=== PATIENT | female | born 1950 | race Caucasian/White ===

== ENCOUNTER 2021-08-07 15:35 | Emergency (ER) | payer MEDICARE ==
[2021-08-07] MEDS ORDERED: Ketorolac 30 MG/ML SDV IM ONE (15:56)
--- NOTE | 2021-08-07 16:03 | EDM.PDOC ---
ED HPI GENERAL MEDICAL PROBLEM - General Chief Complaint: Upper Extremity Injury/Pain Stated Complaint: FELL ON [place] [facility] , RT WRIST INJURY Time Seen by Provider: 08/07/21 15:45 Source of Information: Reports: Patient History Limitations: Reports: No Limitations - History of Present Illness INITIAL COMMENTS - FREE TEXT/NARRATIVE: 71 yo male here with a R distal forearm injury from a fall today. Has a splint in place on arrival. No other injuries. No pain meds taken before arrival. 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(s) Right Arm Pain Score (Numeric/FACES): 5 - Related Data Allergies Allergy/AdvReac Type Severity Reaction Status Date / Time No Known Allergies Allergy Verified 08/07/21 15:59 Home Meds: Home Meds atorvaSTATin [Lipitor] 20 mg PO DAILY 08/07/21 [History] Review of Systems - Review of Systems Review Of Systems: See Below Constitutional: Reports: No Symptoms Musculoskeletal: Reports: Arm Pain (R forearm) Skin: Reports: No Symptoms Neurological: Reports: No Symptoms ED EXAM, GENERAL - Physical Exam Exam: See Below Exam Limited By: No Limitations General Appearance: Alert, WD/WN, No Apparent Distress Extremities: No Pedal Edema, Limited Range of Motion (due to pain), Other (distal forearm with a visible deformity. Good radial pulse present. ). No: Normal Inspection, Normal Range of Motion, Non-Tender, Pedal Edema, Increased Warmth, Redness Neurological: Alert, Oriented, CN II-XII Intact, Normal Cognition, No Motor/Sensory Deficits Psychiatric: Normal Affect, Normal Mood Skin Exam: Warm, Dry, Intact, Normal Color, No Rash. No: Ecchymosis, Erythema ED TRAUMA EXTREMITY PROCEDURES - Additional/Other Procedure(s) Other (Free Text) Procedure(s): Under anesthesia guided propofol sedation I attempted to reduce her dorsally angulated distal radius fx. My first post-reduction X-ray showed the fx had slipped back into its original dorsally angulated position. I reattempted to reduce the fx this time the images look good, but by the time we were able to get the sugar-tong splint on she was partially dorsally angulated again. I decided to accept the final position as it was an improvement over her starting position. A sling was applied by nursing. Course - Vital Signs Text/Narrative:: Michela Clark called @ 1620h for consult Last Recorded V/S: Last Vital Signs Temp 36.4 C 08/07/21 15:59 Pulse 87 08/07/21 15:59 Resp 16 08/07/21 15:59 BP 150/76 H 08/07/21 15:59 Pulse Ox 96 08/07/21 15:59 - Orders/Labs/Meds Orders: Active Orders 24 hr Category Date Time Status Forearm 2V Rt [CR] Stat Exams 08/07/21 15:57 Taken Wrist Comp Min 3V Rt [CR] Stat Exams 08/07/21 17:00 Ordered Sodium Chloride 0.9% [Saline Flush] Med 08/07/21 16:35 Active 10 ml FLUSH ASDIRECTED PRN Saline Lock Insert [OM.PC] Routine Oth 08/07/21 16:35 Ordered Medication Orders Sodium Chloride (Sodium Chloride 0.9% 10 Ml Syringe) 10 ml FLUSH ASDIRECTED PRN PRN Reason: Keep Vein Open Meds: Medications Generic Name Dose Route Start Last Admin Trade Name Freq PRN Reason Stop Dose Admin Sodium Chloride 10 ml 08/07/21 16:35 Sodium Chloride 0.9% 10 Ml Syringe FLUSH ASDIRECTED PRN Keep Vein Open Discontinued Medications Generic Name Dose Route Start Last Admin Trade Name Freq PRN Reason Stop Dose Admin Ketorolac Tromethamine 30 mg 08/07/21 15:56 08/07/21 16:06 Ketorolac 30 Mg/Ml Sdv IM 08/07/21 15:57 30 mg ONETIME ONE Administration - Radiology Interpretation Free Text/Narrative:: R forearm [id number] radius fx post-reduction X-ray of wrist- Departure - Departure Time of Disposition: 18:15 Disposition: Home, Self-Care 01 Condition: Fair Clinical Impression: Fracture of right distal radius Qualifiers: Encounter type: initial encounter Fracture type: closed Fracture morphology: unspecified fracture morphology Qualified Code(s): S52.501A - Unspecified fracture of the lower end of right radius, initial encounter for closed fracture - Discharge Information *PRESCRIPTION DRUG MONITORING PROGRAM REVIEWED*: Not Applicable *COPY OF PRESCRIPTION DRUG MONITORING REPORT IN PATIENT CHE: Not Applicable Instructions: Closed Reduction for Wrist or Forearm, Care After Referrals: PCP,None [Primary Care Provider] - Forms: ED Department Discharge Additional Instructions: Leave your splint on at all times. Use your sling for added support. Follow up with orthopedics at your earliest opportunity next week for further care. Take your disc with your X-rays along to the appt. Take ibuprofen up to 600 mg every 6 hrs with food for pain relief. Add acetaminophen for further pain relief. You can apply an ice bag to the fracture site to help with the pain and set your forearm on a pillow to provide some elevation. Sepsis Event Note (ED) - Focused Exam Vital Signs: Vital Signs Temp Pulse Resp BP Pulse Ox 08/07/21 15:59 36.4 C 87 16 150/76 H 96 08/07/21 15:52 36.4 C 87 16 150/76 H 96 - My Orders Last 24 Hours: My Active Orders 08/07/21 15:57 Forearm 2V Rt [CR] Stat 08/07/21 16:35 Sodium Chloride 0.9% [Saline Flush] 10 ml FLUSH ASDIRECTED PRN Saline Lock Insert [OM.PC] Routine 08/07/21 17:00 Wrist Comp Min 3V Rt [CR] Stat - Assessment/Plan Last 24 Hours: My Active Orders 08/07/21 15:57 Forearm 2V Rt [CR] Stat 08/07/21 16:35 Sodium Chloride 0.9% [Saline Flush] 10 ml FLUSH ASDIRECTED PRN Saline Lock Insert [OM.PC] Routine 08/07/21 17:00 Wrist Comp Min 3V Rt [CR] Stat
[2021-08-07] MEDS ORDERED: Sodium Chloride 0.9% 10 ML Syringe FLUSH PRN (16:35)
[2021-08-07] MEDS ORDERED: Propofol 200 MG/20 ML SDV ONE (17:30)
--- NOTE | 2021-08-10 09:06 | CR ---
Forearm 2V Rt, Wrist Comp Min 3V Rt CLINICAL HISTORY: Fall FINDINGS: There is an active displaced fracture of the distal radius with dorsal angulation. There is ulnar abutment on the proximal carpal row IMPRESSION: Impacted distal radial fracture Wrist Comp Min 3V Rt CLINICAL HISTORY: Post reduction FINDINGS: There is a lateral post reduction image #1 showing similar angulation of the distal radius. There is a post reduction #2 image showing reduction of the dorsal angulation. There is a post reduction image #3 with a cast in place. There is an increase in dorsal angulation since #2 IMPRESSION: Post reduction images of distal radial fracture described above
== END 2021-08-07 18:47 | disposition home or self-care (01) ==
LOC: JP.ED 15:35
DX: S52.501A Unspecified fracture of the lower end of right radius, initial encounter for closed fracture (principal); Z79.899 Other long term (current) drug therapy; W18.39XA Other fall on same level, initial encounter
CPT/HCPCS: 25605; 73090; 73110; 96372; 99283; J1885; J2704